=== PATIENT | female | born 1950 | race Caucasian/White ===

== ENCOUNTER 2019-02-06 10:30 | Outpatient (CLI) | payer OTHER | END 2019-02-06 20:22 | disposition home or self-care (01) | LOC: SMA 10:30 | PROVIDERS: ATTEND Family Medicine | DX: Z12.31 Encounter for screening mammogram for malignant neoplasm of breast (principal) | CPT/HCPCS: 77067 ==

== ENCOUNTER 2020-07-03 10:16 | Outpatient (CLI) | payer OTHER | END 2020-07-03 19:50 | disposition home or self-care (01) | LOC: SMA 10:16 | PROVIDERS: ATTEND Family Medicine | DX: Z12.31 Encounter for screening mammogram for malignant neoplasm of breast (principal) | CPT/HCPCS: 77067 ==

== ENCOUNTER 2021-10-07 09:48 | Outpatient (CLI) | payer OTHER | END 2021-10-07 21:37 | disposition home or self-care (01) | LOC: SMA 09:48 | PROVIDERS: ATTEND Family Medicine | DX: Z12.31 Encounter for screening mammogram for malignant neoplasm of breast (principal) | CPT/HCPCS: 77067 ==